=== PATIENT | female | born 1950 | race Caucasian/White ===

== ENCOUNTER 2017-08-17 20:55 | Emergency (ER) | payer MEDICARE, OTHER ==
[~2017-08-17] VITALS: Ht 157.5 cm; Wt 59.0 kg
[2017-08-17] MEDS ORDERED: SODIUM CHLORIDE 0.9% 1,000 ML IV ONE (21:45)
[2017-08-17 22:39] LABS: Basophils # (auto) 0 uL; Basophils % (auto) 0.3 % (0.0-2.0); Eosinophils # (auto) 0 uL; Eosinophils % (auto) 0.2 % (0.0-7.0); Hematocrit 37.7 % (36.0-46.0); Hemoglobin 12.3 g/dL (12.2-16.2); Lymphocytes # (auto) 0.1 uL; Lymphocytes % (auto) 2.4 % (10.0-50.0); Mean Corpuscular Hemoglobin 27.4 pg (28.0-32.0); Mean Corpuscular Hgb Conc. 32.7 g/dL (32.0-36.0); Mean Corpuscular Volume 83.6 fL (80.0-100.0); Monocytes # (auto) 0 uL; Monocytes % (auto) 1.1 % (0.0-12.0); Neutrophils # (auto) 3.8 uL; Nucleated Red Blood Cells % 0.1 %; Platelet Count (auto) 248 10^3/uL (140-450); Red Blood Cells 4.51 10^6/uL (4.0-5.20); Red Cell Distribution Width 18.2 % (11.8-14.3)
[2017-08-17 23:02] LABS: Urine Bacteria NONE SEEN /hpf (None Seen); Urine Blood Negative /uL (Negative); Urine Mucus FEW (None Seen); Urine Specific Gravity 1.015 (1.001-1.035); Urine WBC 2 /hpf (0 - 5)
[2017-08-17 23:13] LABS: Albumin 2.7 g/dL (3.4-5.0); BUN/Creatinine Ratio 13.8; Bilirubin, Total 1.2 mg/dL (0.2-1.0); Magnesium 1.6 mg/dL (1.6-2.6); Potassium 3.2 mmol/L (3.5-5.1); Total Protein 5.9 g/dL (6.4-8.2)
[2017-08-17] MEDS ORDERED: cefTRIAXone 1GM/10ml IVPUSH 10 ML IV ONE (23:30)
[2017-08-18] MEDS ORDERED: VANCOMYCIN 1GM/250ML 250 ML IV ONE (02:00)
[2017-08-18 03:18] VITALS: BP 116/61
== END 2017-08-18 03:37 | disposition short-term general hospital (02) ==
LOC: EDBD 20:55 → ER 21:04
DX: C55 Malignant neoplasm of uterus, part unspecified (principal); E87.6 Hypokalemia; R79.89 Other specified abnormal findings of blood chemistry; L02.211 Cutaneous abscess of abdominal wall
CPT/HCPCS: 36415; 71045; 74176; 80053; 81001; 83605; 83735; 83880; 84484; 85025; 87040; 93005; 94761; 96361; 96365; 96375; 99285; J3370; J7030